=== PATIENT | female | born 1995 | race Caucasian/White ===

== ENCOUNTER → 2021-02-09 | Outpatient (CLI) | payer OTHER ==
[~2021-02-09] MED LIST: AMITRIPTYLINE H25 MG PO; BACLOFEN10 MG PO; CYCLOBENZAPRINE10 MG PO; DOCUSATE SODIU100 MG PO; FERROUS SULFAT325 MG PO; GABAPENTIN300 MG PO; IBUPROFEN600 MG PO; LACTULOSE10 GM/15 M PO; LIORESAL TAB 1010 MG PO; NIFEDIPINE ER30 MG PO; OMEPRAZOLE20 MG PO; PLAQUENIL 200200 MG PO; TRAMADOL HCL50 MG PO; VITAMIN D21250 MCG PO
[2021-02-10 12:11] LABS: RHEUMATOID ARTHRITIS FACTOR <10.0 IU/mL (0.0-13.9)
[2021-02-11 00:11] LABS: CCP ANTIBODIES IGG/IGA 3 units (0-19)
[2021-02-14 00:09] LABS: QUANTIFERON MITOGEN VALUE >10.00 IU/mL (.); QUANTIFERON NIL VALUE 0.42 IU/mL (.); QUANTIFERON TB1 AG VALUE 0.56 IU/mL (.); QUANTIFERON TB2 AG VALUE 0.32 IU/mL (.); QUANTIFERON-TB GOLD PLUS Negative (Negative)
== END ==
LOC: LAB 09:36
PROVIDERS: Nurse Practitioner Family
DX: R76.8 Other specified abnormal immunological findings in serum (principal); M25.50 Pain in unspecified joint; G43.709 Chronic migraine without aura, not intractable, without status migrainosus; D89.9 Disorder involving the immune mechanism, unspecified
CPT/HCPCS: 36415; 81001; 82550; 82570; 83520; 84156; 85652; 86140; 86200; 86431

== ENCOUNTER → 2021-02-24 | Day surgery (SDC) | payer OTHER | END | disposition home or self-care (01) | LOC: OR 06:56 | DX: K31.9 Disease of stomach and duodenum, unspecified (principal); K29.50 Unspecified chronic gastritis without bleeding; K21.00 Gastro-esophageal reflux disease with esophagitis, without bleeding; K22.10 Ulcer of esophagus without bleeding; D50.0 Iron deficiency anemia secondary to blood loss (chronic); M79.7 Fibromyalgia; M19.90 Unspecified osteoarthritis, unspecified site; E66.01 Morbid (severe) obesity due to excess calories; Z68.41 Body mass index [BMI] 40.0-44.9, adult; Z88.5 Allergy status to narcotic agent | CPT/HCPCS: 84703; J2250; J2704; J3010; J7040 ==

== ENCOUNTER → 2021-04-02 | Outpatient (CLI) | payer OTHER | LOC: RAD 10:44 | DX: L40.50 Arthropathic psoriasis, unspecified (principal) | CPT/HCPCS: 72202 ==

== ENCOUNTER → 2021-09-10 | Outpatient (CLI) | payer OTHER | LOC: KOH-I 14:25 | DX: M54.9 Dorsalgia, unspecified (principal); R79.82 Elevated C-reactive protein (CRP); R70.0 Elevated erythrocyte sedimentation rate | CPT/HCPCS: 72195 ==